=== PATIENT | female | born 1955 | race Caucasian/White ===

== ENCOUNTER 2024-04-29 02:35 | Inpatient (IN) | payer MEDICARE, SELFPAY ==
[2024-04-29] VITALS (21 sets, daily range): BP systolic 110–146; BP diastolic 61–86; PULSE 95–124; RESP 18–28; TEMP 36.4–37.9; O2SAT 91–98; BMI 17.7; BMI 18.3
--- NOTE | 2024-04-29 02:58 | RAD_ITS ---
INDICATION: SOB,BRONCHIECTASIS EXAMINATION/TECHNIQUE: X-RAY - XR Chest 2 Views COMPARISON: None. FINDINGS: LINES/DEVICES: None. LUNGS: Hyperexpanded lungs with coarsened interstitium. Reticular opacification left posterior lower lobe. No florid edema or effusion. No pneumothorax. Right lateral pulmonary suture noted. MEDIASTINUM AND CARDIOVASCULAR STRUCTURES: Cardiac silhouette not enlarged. BONES AND SOFT TISSUES: Unremarkable. RAD/Chest PA and Lateral IMPRESSION: Findings concerning for left lower lobe pneumonia, superimposed on chronic obstructive pulmonary disease. Electronically Signed: Pancho Gonzalez MD at 4:02 EDT ,
--- NOTE | 2024-04-29 02:58 | EKG12_ITS ---
Test Reason : SOB Blood Pressure : / mmHG Vent. Rate : 124 BPM Atrial Rate : 124 BPM P-R Int : 174 ms QRS Dur : 078 ms QT Int : 286 ms P-R-T Axes : 076 075 065 degrees QTc Int : 410 ms Sinus tachycardia Nonspecific ST and T wave abnormality Abnormal ECG Confirmed by ALEKSANDR JONES, JAYME ([id number]), editorial writer ABDIFATAH VALENTIN ([id number]) on 05/02/2024 10:10:19 AM Referred By: Confirmed By:CLAUDINE BRANDON MD
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
[2024-04-29 03:14] LABS: Absolute Lymphocyte Count 0.12 X10^3/uL (0.83-4.51); Absolute Neutrophil Count 19.1 X10^3/uL (2.0-7.7); Basophil# 0.03 X10^3/uL; Basophil% 0.2 % (0-1); Hematocrit 35.3 % (37-47); Hemoglobin 12.2 g/dL (12.0-15.0); Lymphocyte # 0.12 X10^3/ul (0.83-4.51); Lymphocyte % 0.6 % (19-41); Mean Corp Hgb Conc 34.6 g/dL (32-36); Mean Corpuscular Hgb 33.1 pg (27.0-32.0); Mean Corpuscular Volume 95.7 fL (81-99); Mean Platelet Vol. 11.2 fl (6.2-12.0); Monocyte# 0.59 X10^3/uL; NRBC Flagged by Analyzer 0 % (0-5); Neutrophil # 19.08 X10^3/uL (2.7-7.7); Neutrophil % 95.4 % (47-70); POSITIVE DIFFERENTIAL YES; Platelet Count 123 K/mm3 (150-450); RBC Distribution Width CV 13.7 % (11.6-14.6); RBC Distribution Width SD 48.6 fl (35.1-43.9); Red Blood Count 3.69 M/mm3 (4.2-5.4)
[2024-04-29] MEDS: MethylPREDNISolone 125 MG/2 ML Vial IV (03:15)
[2024-04-29] MEDS: Albuterol 2.5 MG/3 ML VIAL.NEB. INHALATION ×2 (03:17)
[2024-04-29] MEDS: 0.9% Normal Saline (1000mL) 1,000 ML 100 ML IV (03:18)
[2024-04-29 03:40] LABS: Anion Gap 6 (5-15); BUN 17 mg/dL (7-18); BUN/Creat Ratio 22.1 RATIO (10-20); Calcium,Total 9.1 mg/dL (8.5-10.1); Chloride 92 mmol/L (98-107); Creatinine, Serum 0.77 mg/dL (0.55-1.02); EST Glomerular Filtration Rate 79 mL/min (>60); Est Glom Filt Rate - Afr Amer 96 mL/min (>60); Estimated Creatinine Clearance 53.75 ml/min; Glucose 121 mg/dL (74-106); Potassium 3.6 mmol/L (3.5-5.1); Sodium Level 128 mmol/L (136-145); Troponin-I HS 13 pg/mL (3.0-54.0)
[2024-04-29 03:51] LABS: BNP,B-Type NATRIURETIC PEPTIDE 60.9 pg/mL (0-100)
[2024-04-29] MEDS: Acetaminophen 500 MG Tablet 1000 MG PO (04:31)
[2024-04-29] MEDS: Piperacil/Tazobactam 4.5 GM in 0.9% Normal Saline (100mL MB+) 100 ML IV (04:43)
--- NOTE | 2024-04-29 05:06 | HP.PCM.HOS_ITS ---
[facility] - General General Date of Admission: 04/29/24 Date of Service: 04/29/24 Chief Complaint: shortness of breath. HPI Narrative ROSALVA WILSON, is a 68 F who presents with shortness of breath. Patient has a history of bronchiectasis and COPD and is on oxygen 3 L/min continuous. Patient is from outside of [place] and came out this area to do some camping. The left on Sunday and patient had been feeling okay but had not been feeling her normal but did become acutely short of breath this morning which led her to come to the hospital. Patient was noted to be tachypneic and tachycardic and had to be on 6 L of oxygen nasal cannula. Patient had a chest x-ray that showed concerns for developing pneumonia in the left lower lobe. Patient received pip- tazo and azithromycin as well as bronchodilators and methylprednisolone. Patient is feeling better at this time. COUNT [facility]CLUDES THE [facility] Medical History (Updated 04/29/24 @ 05:[address] Mikhail Mason, DO) Paroxysmal atrial fibrillation Bronchiectasis Restless legs Hearing loss, right Depression Anxiety Osteopenia Rheumatoid arthritis GERD (gastroesophageal reflux disease) Smoker On home oxygen therapy Asthma Hypertension DVT (deep venous thrombosis) Sjogren's disease Atrial fibrillation Lupus COPD (chronic obstructive pulmonary disease) Home Medications ?Medication ?Instructions ?Recorded ?Last Taken ?Type albuterol sulfate 2.5 mg/3 mL 2.5 mg inhalation Q6H PRN PRN 04/29/24 Unknown History (0.083 %) solution for nebulization wheezing albuterol sulfate 90 mcg/actuation 2 puff inhalation Q6H PRN PRN 04/29/24 Unknown History aerosol inhaler wheezing apixaban 5 mg tablet (Eliquis) 5 mg PO BID blood thiner 04/29/24 Unknown History cholecalciferol (vitamin D3) 25 25 mcg PO DAILY supplement 04/29/24 Unknown History mcg (1,000 unit) capsule (Vitamin D3) cranberry 500 mg capsule 500 mg PO DAILY supplement 04/29/24 Unknown History diltiazem HCl 240 mg capsule,24 240 mg PO DAILY cardiac 04/29/24 Unknown History hr,extended release duloxetine 30 mg capsule,delayed 30 mg PO DAILY depression 04/29/24 Unknown History release duloxetine 60 mg capsule,delayed 60 mg PO QHS depression 04/29/24 Unknown History release famotidine 20 mg tablet 20 mg PO DAILY gi 04/29/24 Unknown History fluticasone fur. 200 mcg-umeclid 1 inh inhalation DAILY lungs 04/29/24 Unknown History 62.5 mcg-vilant 25 mcg inhalat.powder (Trelegy Ellipta) furosemide 40 mg tablet 40 mg PO DAILY water pill 04/29/24 Unknown History hydroxychloroquine 200 mg tablet 200 mg PO DAILY RA 04/29/24 Unknown History ipratropium bromide 21 mcg (0.03 2 spray intranasal Q12.TCU COPD 04/29/24 Unknown History %) nasal spray lactobacillus combination no.9 1 cap PO DAILY supplement 04/29/24 Unknown History magnesium 200 mg tablet 400 mg PO DAILY supplement 04/29/24 Unknown History mecobalamin (vitamin B12) 1 tab PO DAILY supplement 04/29/24 Unknown History montelukast 10 mg tablet 10 mg PO QPM lungs 04/29/24 Unknown History pantoprazole 40 mg tablet,delayed 40 mg PO DAILY gi 04/29/24 Unknown History release pregabalin 75 mg capsule 75 mg PO TID nerve 04/29/24 Unknown History Allergy/AdvReac Type Severity Reaction Status Date / Time No Known Allergies Allergy Verified 04/29/24 02:49 Family History (Updated 04/29/24 @ 05:[address] Mikhail Mason DO) Other Lung disease Surgical History History of cholecystectomy Social History (Updated 04/29/24 @ 05:[address] Mikhail Mason DO) Smoking Status: Light Smoker (<10/day) alcohol intake: current alcohol intake frequency: holidays/special occasions only substance use type: does not use ROS ROS Narrative Chills. Coughing but unproductive at this time. All review of systems were negative except as mentioned above in the history of present illness and the other review of systems. Vital Signs Vital Signs Vital Signs: 04/29/24 02:36 04/29/24 02:36 04/29/24 02:42 Temperature 36.7 C 36.8 C Temperature Source Oral Oral Pulse Rate 124 H 124 H 122 H Respiratory Rate 27 H 28 H 27 H Respiratory Effort Respiratory Depth Respiratory Pattern Blood Pressure 146/71 H 146/71 H Blood Pressure Mean 96 96 Pulse Ox 91 92 92 Oxygen Delivery Method Nasal Cannula Nasal Cannula Nasal Cannula Oxygen Flow Rate (L/min) 6 6 6 04/29/24 02:42 04/29/24 02:58 04/29/24 03:04 Temperature Temperature Source Pulse Rate 122 H Respiratory Rate 24 H Respiratory Effort Short of Breath Respiratory Depth Deep Respiratory Pattern Tachypnea Blood Pressure Blood Pressure Mean Pulse Ox 92 Oxygen Delivery Method Nasal Cannula Nasal Cannula Oxygen Flow Rate (L/min) 6 6 04/29/24 03:36 04/29/24 03:42 04/29/24 04:00 Temperature 37.8 C H 37.8 C H Temperature Source Oral Oral Pulse Rate 121 H 121 H 113 H Respiratory Rate 20 H 20 H 20 H Respiratory Effort Respiratory Depth Respiratory Pattern Blood Pressure 137/70 H 118/61 122/65 H Blood Pressure Mean 92 80 84 Pulse Ox 91 91 92 Oxygen Delivery Method Nasal Cannula Nasal Cannula Nasal Cannula Oxygen Flow Rate (L/min) 5 6 6 04/29/24 04:32 Temperature 37.9 C H Temperature Source Pulse Rate 115 H Respiratory Rate 20 H Respiratory Effort Respiratory Depth Respiratory Pattern Blood Pressure 122/65 H Blood Pressure Mean 84 Pulse Ox 93 Oxygen Delivery Method Oxygen Flow Rate (L/min) Weight Weight: 49.895 kg Body Mass Index (BMI) 17.7 Physical Exam Narrative - Physical Exam General: Alert, Oriented x3, Cooperative. No respiratory distress. No conversational dyspnea. Patient was having several coughing fits during my encounter and her oxygen did not drop below 90s. Cachectic HEENT: Atraumatic, PERRLA, EOMI, Normocephalic Oral: Moist Mucosa, No Gingival or Mucosal Lesions/ Ulcerations Neck: Supple, No JVD, Negative Carotid Bruits Lungs: Diminished bilaterally. Left lower lobe crackles. Cardiovascular: Regular rate, Normal S1, Normal S2, No murmurs Abdomen: Bowel Sounds Present, Soft, Non Tender, Non-Distended, No Hepato- splenomegaly Extremities: No clubbing, No cyanosis, No edema, Capillary Refill Less than 3 Seconds Skin: No rashes, No breakdown Musculoskeletal: No Tenderness to Palpation of Joints or Extremities Neurological: Neuro grossly intact Psych/Mental Status: Normal Affect, Appropriate Results Lab / Micro Data Attestation: I reviewed the patient's lab results. 04/29/24 02:24 04/29/24 02:24 Labs: Laboratory Results - last 24 hr 04/29/24 02:24: WBC 20.0 H, RBC 3.69 L, Hgb 12.2, Hct 35.3 L, MCV 95.7, MCH 33.1 H, MCHC 34.6, RDW Std Deviation 48.6 H, RDW Coeff of Valerie 13.7, Plt Count 123 L, MPV 11.2, Immature Gran % (Auto) 0.800, Neut % (Auto) 95.4 H, Lymph % (Auto) 0.6 L, [place] % (Auto) 3.0, Eos % (Auto) 0.0, Baso % (Auto) 0.2, Absolute Neuts (auto) 19.1 H, Absolute Lymphs (auto) 0.12 L, Nucleated RBC % 0, Sodium 128 L, Potassium 3.6, Chloride 92 L, Carbon Dioxide 30.0, Anion Gap 6, BUN 17, Creatinine 0.77, Estim Creat Clear Calc 53.75, Est GFR (MDRD) Af Amer 96, Est GFR (MDRD) Non-Af 79, BUN/Creatinine Ratio 22.1 H, Glucose 121 H, Calcium 9.1, Troponin I High Sens 13, B-Natriuretic Peptide 60.9 Micro: Microbiology 04/29/24 03:21 Mucosa - Nose SARS-CoV-2, Influenza & RSV (PCR) - Final Rhythm Strip Rhythm Strip: Sinus Tach Rate: 120 Ectopy: None EKG Initial EKG: Attestation: I personally reviewed and interpreted this EKG as follows: EKG Rhythm Intrepretation: Sinus Tachycardia Imaging Radiology Impression Chest X-Ray 04/29/24 02:58 IMPRESSION: Findings concerning for left lower lobe pneumonia, superimposed on chronic obstructive pulmonary disease. Electronically Signed: Pancho Gonzalez MD at 4:02 EDT , Assessment & Plan Assessment/Plan (1) Pneumonia: (2) Acute exacerbation of chronic obstructive pulmonary disease (COPD): PLAN: Plan Pneumonia * Suspect gram-negative given given the patient's underlying chronic bronchiectasis * Plan: Pip-tazo for antibiotics. Check sputum culture, check urinary antigens for strep and Legionella. Pulmonary toilet patient recently treated for pneumonia about 3 weeks ago. Will request records from that hospital ([place], [place]). Acute COPD exacerbation * Bronchodilators and methylprednisolone. Complicated by patient's underlying bronchiectasis Acute exacerbation of bronchiectasis * As above Moderate protein calorie malnutrition * Supplements Chronic condition * Paroxysmal atrial fibrillation: Patient is tachycardic but appears to be sinus tach. Resume medications once the med reconciled. * Sjogren's: Complicates care and recovery * Recent GI bleed. Patient was noted to have heme positive stools and was scheduled to have outpatient EGD in the coming weeks. VTE prophylaxis with SCDs CODE STATUS: Addressed with the patient. Patient wishes to be DNR Comfort Care arrest no intubation. Charges/Coding Visit Charges Inpatient E&M: 11551 Init Hosp L3
[2024-04-29 05:09] LABS: Allen Test Positive; Base Excess 1 mmol/L (-2 to +2); Blood Gas Specimen Type ART; Mode Not entered; O2 Delivery Device Cannula; PO2 61 mmHG (75-100); SITE R Radial; SO2 91 % (95-99); Total Carbon Dioxide 27 mmol/L; pCO2 43.1 mmHg (35-45); pH 7.39 (7.35-7.45)
[2024-04-29] MEDS: Azithromycin 500 MG in Dextrose 5%-Water (250mL Bag) 250 ML 250 MG IV (05:55)
[2024-04-29] MEDS: Ipratropium/Albuterol Sulfate 3 ML AMPUL.NEB INHALATION ×5 (07:31→23:01)
[2024-04-29] MEDS: guaiFENesin 1,200 MG Tablet 1200 MG PO ×2 (08:04→21:08)
--- NOTE | 2024-04-29 08:24 | EX.PCM.CONCC ---
Assessment & Plan Assessment/Plan (1) Acute exacerbation of chronic obstructive pulmonary disease (COPD): (2) Bronchiectasis: PLAN: Plan RECOMMENDATIONS: 1. Supplemental oxygen to maintain saturations at or above 90%. 2. Continue empiric antimicrobials. 3. Continue scheduled bronchodilators and steroids. 4. Encourage bronchopulmonary hygiene with PEP and IS. 5. Mobilize patient as tolerated. IMPRESSIONS: 1. COPD/bronchiectasis exacerbation secondary to left lower lobe pneumonia The patient has a known history of COPD and bronchiectasis and is followed by a lime plant operator in [place]. The patient was vacationing here at a local campground and was exposed recently to campfire smoke. In addition, her chest x-ray demonstrated a left lower lobe infiltrate, concerning for pneumonia. Accordingly, it is reasonable to continue scheduled bronchodilators, steroids and antimicrobials as ordered. The patient has a baseline oxygen requirement of 2 to 3 L/min and continues to smoke cigarettes daily. She appears to be improving clinically from a respiratory perspective. If the patient continues on this trajectory, she will likely be stable for discharge home tomorrow. She will require close outpatient follow-up with her primary lime plant operator in [place] after discharge. 2. Chronic tobacco dependency/protein calorie malnutrition/paroxysmal atrial fibrillation/Sjogren's syndrome Complicates care, management, recovery and prognosis. Continue current supportive care. Tobacco cessation counseling was provided. This note was generated with [employer] dictation software. It may contain incorrect words, spelling, and punctuation that were not noted in checking the note before signing. HPI Consult Data Date of Consult: 04/29/24 HPI Narrative Reason for Consultation: COPD exacerbation HPI Narrative: The patient is a 68-year-old female, with a history as outlined below, who presented to the emergency department on the morning of April 29 with worsening shortness of breath. The patient has a known history of COPD of unclear severity along with bronchiectasis and chronic hypoxemic respiratory failure with a baseline oxygen requirement of 2 to 3 L/min. The patient currently resides in [place] and was here for vacation at a local campground. She has an extensive tobacco abuse history and continues to smoke 0.5 packs of cigarettes per day. She is on a triple therapy inhaler regimen at her baseline, followed by a local lime plant operator in [place]. She stated that she has been admitted to her local hospital in [place] several times over the last multiple months, due to exacerbations. On presentation to the emergency department, the patient was documented to have a low-grade fever and was tachycardic and tachypneic. She was otherwise hemodynamically stable and saturating 91% on 6 L/min via nasal cannula. Laboratory evaluation revealed an elevated white blood cell count to 20,000. Platelet count was low at 123,000. Chemistry profile was notable for a sodium of 128, chloride of 92 and normal creatinine. Troponin and BNP were normal. ABG demonstrated a pH of 7.39 with a pCO2 of 43 and pO2 of 61. Chest x-ray demonstrated a left lower lobe infiltrate. The patient was initiated on scheduled bronchodilators, IV steroids and antimicrobials. She was admitted to the medical surgical floor for further management. At the time of my evaluation of the patient this morning, she noted interval improvement in her overall breathing quality. She is currently saturating in the mid to high 90s on 3 L/min via nasal cannula. She reports compliance with her prescribed inhaler regimen. [facility] Medical History (Updated 04/29/24 @ 05:[address] Mikhail Mason, DO) Paroxysmal atrial fibrillation Bronchiectasis Restless legs Hearing loss, right Depression Anxiety Osteopenia Rheumatoid arthritis GERD (gastroesophageal reflux disease) Smoker On home oxygen therapy Asthma Hypertension DVT (deep venous thrombosis) Sjogren's disease Atrial fibrillation Lupus COPD (chronic obstructive pulmonary disease) Home Medications ?Medication ?Instructions ?Recorded ?Last Taken ?Type albuterol sulfate 2.5 mg/3 mL 2.5 mg inhalation Q6H PRN PRN 04/29/24 Unknown History (0.083 %) solution for nebulization wheezing albuterol sulfate 90 mcg/actuation 2 puff inhalation Q6H PRN PRN 04/29/24 Unknown History aerosol inhaler wheezing apixaban 5 mg tablet (Eliquis) 5 mg PO BID blood thiner 04/29/24 Unknown History cholecalciferol (vitamin D3) 25 25 mcg PO DAILY supplement 04/29/24 Unknown History mcg (1,000 unit) capsule (Vitamin D3) cranberry 500 mg capsule 500 mg PO DAILY supplement 04/29/24 Unknown History diltiazem HCl 240 mg capsule,24 240 mg PO DAILY cardiac 04/29/24 Unknown History hr,extended release duloxetine 30 mg capsule,delayed 30 mg PO DAILY depression 04/29/24 Unknown History release duloxetine 60 mg capsule,delayed 60 mg PO QHS depression 04/29/24 Unknown History release famotidine 20 mg tablet 20 mg PO DAILY gi 04/29/24 Unknown History fluticasone fur. 200 mcg-umeclid 1 inh inhalation DAILY lungs 04/29/24 Unknown History 62.5 mcg-vilant 25 mcg inhalat.powder (Trelegy Ellipta) furosemide 40 mg tablet 40 mg PO DAILY water pill 04/29/24 Unknown History hydroxychloroquine 200 mg tablet 200 mg PO DAILY RA 04/29/24 Unknown History ipratropium bromide 21 mcg (0.03 2 spray intranasal Q12.TCU COPD 04/29/24 Unknown History %) nasal spray lactobacillus combination no.9 1 cap PO DAILY supplement 04/29/24 Unknown History magnesium 200 mg tablet 400 mg PO DAILY supplement 04/29/24 Unknown History mecobalamin (vitamin B12) 1 tab PO DAILY supplement 04/29/24 Unknown History montelukast 10 mg tablet 10 mg PO QPM lungs 04/29/24 Unknown History pantoprazole 40 mg tablet,delayed 40 mg PO DAILY gi 04/29/24 Unknown History release pregabalin 75 mg capsule 75 mg PO TID nerve 04/29/24 Unknown History Allergy/AdvReac Type Severity Reaction Status Date / Time No Known Allergies Allergy Verified 04/29/24 02:49 Family History (Updated 04/29/24 @ 05:[address] Mikhail Mason DO) Other Lung disease Surgical History History of cholecystectomy Social History (Updated 04/29/24 @ 05:[address] Mikhail Mason DO) Smoking Status: Light Smoker (<10/day) alcohol intake: current alcohol intake frequency: holidays/special occasions only substance use type: does not use ROS ROS Narrative 10 systems were reviewed with pertinent positives as noted in the HPI above. Physical Exam Const alert and no apparent distress General Appearance: cooperative HEENT normocephalic and head/scalp atraumatic Eyes PERRL, EOMs intact bilaterally and conjunctivae normal Neck supple General: trachea midline Chest inspection of chest normal Resp normal respiratory effort Auscultation: rales bilateral base and diminished lung sounds Cardio regular rate and regular rhythm GI normal to inspection, nondistended, normoactive bowel sounds Extremity no clubbing, cyanosis or edema Skin no rashes or lesions noted Neuro CN's II-XII intact bilaterally, moves all extremities and no focal motor deficits Psych cooperative and affect normal Lab / Micro Data 04/29/24 02:24 04/29/24 02:24 Labs: Laboratory Results - last 24 hr 04/29/24 02:24: WBC 20.0 H, RBC 3.69 L, Hgb 12.2, Hct 35.3 L, MCV 95.7, MCH 33.1 H, MCHC 34.6, RDW Std Deviation 48.6 H, RDW Coeff of Valerie 13.7, Plt Count 123 L, MPV 11.2, Immature Gran % (Auto) 0.800, Neut % (Auto) 95.4 H, Lymph % (Auto) 0.6 L, [place] % (Auto) 3.0, Eos % (Auto) 0.0, Baso % (Auto) 0.2, Absolute Neuts (auto) 19.1 H, Absolute Lymphs (auto) 0.12 L, Nucleated RBC % 0, Sodium 128 L, Potassium 3.6, Chloride 92 L, Carbon Dioxide 30.0, Anion Gap 6, BUN 17, Creatinine 0.77, Estim Creat Clear Calc 53.75, Est GFR (MDRD) Af Amer 96, Est GFR (MDRD) Non-Af 79, BUN/Creatinine Ratio 22.1 H, Glucose 121 H, Calcium 9.1, Troponin I High Sens 13, B-Natriuretic Peptide 60.9 Micro: Microbiology 04/29/24 03:21 Mucosa - Nose SARS-CoV-2, Influenza & RSV (PCR) - Final ABG Data ABG results: ABG 04/29/24 05:05 Specimen Type ART Sample Site R Radial pH 7.39 Bicarbonate Actual 26.0 Total CO2 27 Base Excess 1 O2 Saturation 91 L O2 % 6.0 ABG pCO2 43.1 ABG pO2 61 L Gui Test Positive O2 Delivery Device Cannula Vent Mode Not entered Rhythm Strip Rhythm Strip: Sinus Tach Rate: 120 Ectopy: None Imaging Radiology Impression Chest X-Ray 04/29/24 02:58 IMPRESSION: Findings concerning for left lower lobe pneumonia, superimposed on chronic obstructive pulmonary disease. Electronically Signed: Pancho Gonzalez MD at 4:02 EDT , Charges/Coding Visit Charges Inpatient E&M: 39041 Init Hosp L3
--- NOTE | 2024-04-29 11:15 | CASEMGMT ---
ANDI WESTFALL Assessment Face to Face with patient for initial transition planning/care coordination assessment. ANDI WESTFALL introduced self and role at [facility], pt voices understanding. Pt is A&Ox4 and is resting comfortably in bed and is calm. Care providers, pharmacy, and demographics verified. Admitting dx: Pneumonia PCP: Pancho Cardozo Specialists: Pulmonary in [place] Preferred Pharmacy: [facility] during this stay Insurance: [facility] (MCR ADV) Prescription Benefit: Yes LNOK: Devendra Almonte (H) Living Arrangements: Pt is visiting from [place] for some camping. Pt normally lives with her in a two story home with 2 steps to enter ADLs/IADLs: States normally ind and that her is able to provide support as needed . Transportation: Pt . pt denies concerns DME: Pt states that she wears 3L continuous via [place] through [employer]. TC to [employer] and [employer] states that the pt current order states 3L cont. Pt states that she has a portable oxygen concentrator, stationary concentrator, and a pulse ox. Pt states that her will bring in her portable 02 at time of DC. Pt also alvarez s a FWW. HHC/SNF: Denies history or needs Plan: Per the MD, the plan is to DC the pt tomorrow as long as she continues to trend in the right direction. 6-Click is 20. Pt states that she does not need or want HHC, OP Tx, or SNF. Pt states that she plans to return to the campground that she is visiting tomorrow after DC. Pt denies further concerns. CM to follow for updated O2 requirements. Laury Peng RN, CM
--- NOTE | 2024-04-29 13:29 | PCM.HOSP.N ---
Hospitalist Note Patient was seen and examined today, she was admitted early this morning with left lower lobe pneumonia, she was seen by pulmonary medicine today who recommended continuing present antibiotics and discharging the patient when medically stable on Levaquin. Patient is currently on 3 L/min via nasal cannula which is her usual setting. Patient will be reevaluated tomorrow, continue present treatment.
[2024-04-29] MEDS: Piperacil/Tazobactam 3.375 GM in 0.9% Normal Saline (50mL MB+) 50 ML IV ×2 (13:45→21:08)
[2024-04-29] MEDS: 0.9% Saline Lock 10 ML Syringe IV (13:45)
[2024-04-30] VITALS (8 sets, daily range): BP systolic 131–159; BP diastolic 64–78; PULSE 105–118; RESP 18–22; TEMP 36.6–37.2; O2SAT 95–98
[2024-04-30] MEDS: Ipratropium/Albuterol Sulfate 3 ML AMPUL.NEB INHALATION ×2 (02:28→06:46)
[2024-04-30] MEDS: Piperacil/Tazobactam 3.375 GM in 0.9% Normal Saline (50mL MB+) 50 ML IV (05:06)
[2024-04-30 06:53] LABS: Absolute Lymphocyte Count 0.73 X10^3/uL (0.83-4.51); Basophil# 0.01 X10^3/uL; Basophil% 0.1 % (0-1); Eosinophil# 0.03 X10^3/uL; Eosinophils% 0.2 % (0-5); Hematocrit 33.1 % (37-47); Hemoglobin 11.4 g/dL (12.0-15.0); Lymphocyte # 0.73 X10^3/ul (0.83-4.51); Lymphocyte % 5.2 % (19-41); Mean Corp Hgb Conc 34.4 g/dL (32-36); Mean Corpuscular Hgb 32.9 pg (27.0-32.0); Mean Corpuscular Volume 95.7 fL (81-99); Mean Platelet Vol. 10.9 fl (6.2-12.0); Monocyte# 0.32 X10^3/uL; Monocyte% 2.3 % (0-10); NRBC Flagged by Analyzer 0 % (0-5); Neutrophil # 12.97 X10^3/uL (2.7-7.7); Neutrophil % 91.6 % (47-70); Platelet Count 129 K/mm3 (150-450); RBC Distribution Width CV 13.9 % (11.6-14.6); RBC Distribution Width SD 48.8 fl (35.1-43.9); Red Blood Count 3.46 M/mm3 (4.2-5.4); White Blood Count 14.1 K/mm3 (4.4-11.0)
[2024-04-30 07:16] LABS: Anion Gap 5 (5-15); BUN 13 mg/dL (7-18); BUN/Creat Ratio 19.1 RATIO (10-20); Chloride 99 mmol/L (98-107); Creatinine, Serum 0.68 mg/dL (0.55-1.02); EST Glomerular Filtration Rate 91 mL/min (>60); Est Glom Filt Rate - Afr Amer 111 mL/min (>60); Estimated Creatinine Clearance 55.48 ml/min; Glucose 156 mg/dL (74-106); Potassium 3.9 mmol/L (3.5-5.1); Sodium Level 134 mmol/L (136-145)
--- NOTE | 2024-04-30 08:43 | PCM.DC ---
Discharge Instructions Diet Discharge Diet: No restrictions Activity Discharge Activity: Return to Normal Activity Weight Bearing Status: Full weight bearing Follow Up Care Test Results: Test results from this visit will be discussed in further detail at your follow-up appointment, if applicable. Discharge Plan Admission Admit Date/Time: 04/29/24 04:56 Primary Reason for Your Visit: pneumonia Attending Provider: Jaime Pryor Primary Care Provider: ANSHU LANDRY Consulting Providers: Mikhail Mason; Josiah Hope; Manjinder Nicholson; Al Lacey; Franklyn Garrett; Allen Matthews; Hyun Mast; Silvio Gates; Vincent Sanchez; Salena Lizarraga; Guru Aguilar; Nick Scott; Elder Ratliff; Adeel Sanchez; Aaron Jean-Baptiste; Tyrone Martinez; Ernesto Arenas; Yanci Buenrostro [employer] PRESIDENT Instructions Additional Instructions / Restrictions: Follow-up with your primary care doctor in 1 to 2 weeks Discharge Orders/Prescriptions Prescriptions: New amoxicillin-pot clavulanate 875-125 mg tablet 1 tab PO BID Qty: 20 0RF Rx Instructions: start this evening-take with food prednisone 20 mg tablet 40 mg PO DAILY Qty: 10 0RF Rx Instructions: start today Continued albuterol sulfate 2.5 mg /3 mL (0.083 %) solution for nebulization 2.5 mg inhalation Q6H PRN PRN (Reason: wheezing) diltiazem HCl 240 mg capsule,extended release 24 hr 240 mg PO DAILY duloxetine 30 mg capsule,delayed release(DR/EC) 30 mg PO DAILY duloxetine 60 mg capsule,delayed release(DR/EC) 60 mg PO QHS famotidine 20 mg tablet 20 mg PO DAILY furosemide 40 mg tablet 40 mg PO DAILY hydroxychloroquine 200 mg tablet 200 mg PO DAILY ipratropium bromide 21 mcg (0.03 %) spray,non-aerosol 2 spray INTRANASAL Q12.TCU montelukast 10 mg tablet 10 mg PO QPM pregabalin 75 mg capsule 75 mg PO TID pantoprazole 40 mg tablet,delayed release (DR/EC) 40 mg PO DAILY albuterol sulfate 90 mcg/actuation HFA aerosol inhaler 2 puff INHALATION Q6H PRN PRN (Reason: wheezing) Trelegy Ellipta 200-62.5-25 mcg blister with device 1 inh inhalation DAILY mecobalamin (vitamin B12) 1 tab PO DAILY Patient Comments: 100 mg cranberry 500 mg capsule 500 mg PO DAILY Rx Instructions: administer with a meal Eliquis 5 mg tablet 5 mg PO BID cholecalciferol (vitamin D3) [Vitamin D3] 25 mcg (1,000 unit) capsule 25 mcg PO DAILY lactobacillus combination no.9 [Adult 50 Plus Probiotic] 1 cap PO DAILY Patient Comments: 40 million magnesium 200 mg tablet 400 mg PO DAILY Referrals / Follow Up: ANSHU LANDRY [[facility]] [facility] Doctor,Out of [Non-Staff] - Disposition Disposition (needs filled in before D/C Order can be placed): Home, Self Care
[2024-04-30] MEDS: guaiFENesin 1,200 MG Tablet 1200 MG PO (08:45)
--- NOTE | 2024-04-30 08:54 | PCM.DC.SUM ---
Providers Date of Admission: 04/29/24 Date of Discharge: 04/30/24 Primary Care Physician: ANSHU LANDRY Consultations 04/29/24 05:28 Consult: Adjunct Faculty For Medical Terminology / Pulmonary Medicine Routine Consulting Provider: Pulmonary Medicine [facility] [place] Reason for Consult: pneumonia. bronchiectasis EMERGENT Consult: No MD Notified: Yes Date Notified: 04/29/24 Time Notified: 07:42 Method of Notification: Text Reason For Visit: PNEUMONIA ACUTE CHRONIC RESPIRATORY FAILURE Diagnosis Discharge Diagnosis (1) Acute exacerbation of chronic obstructive pulmonary disease (COPD): Status: Chronic Code(s): J44.1 - Chronic obstructive pulmonary disease with (acute) exacerbation (2) Bronchiectasis: Status: Acute Code(s): J47.9 - Bronchiectasis, uncomplicated Plan 1. Community-acquired pneumonia left lower lobe #2 exacerbation of bronchiectasis secondary to left lower lobe pneumonia #3 chronic obstructive pulmonary disease #4 hyponatremia-not felt to be medically significant #5 paroxysmal atrial fibrillation #6 chronic hypoxic respiratory failure No evidence for malnutrition exists, malnutrition was ruled out Medications at Discharge Home Medications albuterol sulfate 2.5 mg/3 mL (0.083 %) solution for nebulization 2.5 mg inhalation Q6H PRN PRN wheezing 04/29/24 albuterol sulfate 90 mcg/actuation aerosol inhaler 2 puff inhalation Q6H PRN PRN wheezing 04/29/24 apixaban 5 mg tablet (Eliquis) 5 mg PO BID blood thiner 04/29/24 cholecalciferol (vitamin D3) 25 mcg (1,000 unit) capsule (Vitamin D3) 25 mcg PO DAILY supplement 04/29/24 cranberry 500 mg capsule 500 mg PO DAILY supplement 04/29/24 diltiazem HCl 240 mg capsule,24 hr,extended release 240 mg PO DAILY cardiac 04/29/24 duloxetine 30 mg capsule,delayed release 30 mg PO DAILY depression 04/29/24 duloxetine 60 mg capsule,delayed release 60 mg PO QHS depression 04/29/24 famotidine 20 mg tablet 20 mg PO DAILY gi 04/29/24 fluticasone fur. 200 mcg-umeclid 62.5 mcg-vilant 25 mcg inhalat.powder (Trelegy Ellipta) 1 inh inhalation DAILY lungs 04/29/24 furosemide 40 mg tablet 40 mg PO DAILY water pill 04/29/24 hydroxychloroquine 200 mg tablet 200 mg PO DAILY RA 04/29/24 ipratropium bromide 21 mcg (0.03 %) nasal spray 2 spray intranasal Q12.TCU COPD 04/29/24 lactobacillus combination no.9 1 cap PO DAILY supplement 04/29/24 magnesium 200 mg tablet 400 mg PO DAILY supplement 04/29/24 mecobalamin (vitamin B12) 1 tab PO DAILY supplement 04/29/24 montelukast 10 mg tablet 10 mg PO QPM lungs 04/29/24 pantoprazole 40 mg tablet,delayed release 40 mg PO DAILY gi 04/29/24 pregabalin 75 mg capsule 75 mg PO TID nerve 04/29/24 amoxicillin 875 mg-potassium clavulanate 125 mg tablet 1 tab PO BID #20 tabs 04/30/24 prednisone 20 mg tablet 40 mg (2 x 20 mg) PO DAILY #10 tabs 04/30/24 Hospital Course Operations None Procedures None Summary of Care Provided Minutes Spent on Discharge: 31 Hospital Course: This 68-year-old white female was seen in the emergency room at [facility] with complaints of shortness of breath, she had been visiting from out of state and camping with her , she related to a period of 5 to 6 hours of worsening breathing with coughing and production chronically of green and yellow sputum. Patient had a history of bronchiectasis and COPD and uses 3 L of oxygen at all times. Lab obtained in the emergency room showed an elevated white blood cell count at 20,000, sodium was 128, beta natruretic peptide was normal. Chest x-ray showed findings concerning for left lower lobe pneumonia superimposed on chronic obstructive pulmonary disease. Patient was admitted to [place] [address], she was placed on IV antibiotics and aerosol treatments as well as corticosteroids. She was seen in consultation by pulmonary medicine, oxygen requirements improved. On 04/30/2024, patient was seen and examined: On examination she appeared in good health and spirits, she does not appear to be in any distress. Vital signs as documented. Skin warm and dry and without overt rashes. Neck without JVD, thyroid appears normal, trachea is midline, neck is supple. Lungs clear, normal air movement was noted. Heart exam notable for regular rhythm, normal sounds and absence of murmurs, rubs or gallops. Abdomen unremarkable and without evidence of organomegaly, masses, or abdominal aortic enlargement, bowel sounds are present in all 4 quadrants, no abdominal tenderness was noted. Extremities nonedematous, no cyanosis was noted, no clubbing was noted. Neuro: Cranial nerves II through XII are grossly intact, no focal motor deficits were noted, sensation to light touch and pinprick is intact, motor exam 5/5 throughout. Psych: Patient is alert and oriented x3, she does not appear anxious or depressed, she does not appear agitated. Patient appears stable for discharge on 04/30/2024. Weight / BMI Weight Weight: 51.5 kg Body Mass Index (BMI) 18.3 ABG / Lab / Microbiology Data 04/30/24 06:04 04/30/24 06:04 Laboratory: Laboratory Results - last 24 hr 04/30/24 06:04: WBC 14.1 H, RBC 3.46 L, Hgb 11.4 L, Hct 33.1 L, MCV 95.7, MCH 32.9 H, MCHC 34.4, RDW Std Deviation 48.8 H, RDW Coeff of Valerie 13.9, Plt Count 129 L, MPV 10.9, Immature Gran % (Auto) 0.600, Neut % (Auto) 91.6 H, Lymph % (Auto) 5.2 L, [place] % (Auto) 2.3, Eos % (Auto) 0.2, Baso % (Auto) 0.1, Absolute Neuts (auto) 13.0 H, Absolute Lymphs (auto) 0.73 L, Nucleated RBC % 0, Sodium 134 L, Potassium 3.9, Chloride 99, Carbon Dioxide 30.0, Anion Gap 5, BUN 13, Creatinine 0.68, Estim Creat Clear Calc 55.48, Est GFR (MDRD) Af Amer 111, Est GFR (MDRD) Non-Af 91, BUN/Creatinine Ratio 19.1, Glucose 156 H, Calcium 9.0 Microbiology: Microbiology 04/29/24 21:15 Urine, Random Legionella Antigen - Final 04/29/24 21:15 Urine, Random Streptococcus pneumoniae Antigen (M - Final 04/29/24 07:45 Sputum, Expectorated/Coughed Gram Stain - Final 04/29/24 03:21 Mucosa - Nose SARS-CoV-2, Influenza & RSV (PCR) - Final Radiography Diagnostic Testing: Radiology Impression Chest X-Ray 04/29/24 02:58 IMPRESSION: Findings concerning for left lower lobe pneumonia, superimposed on chronic obstructive pulmonary disease. Electronically Signed: Anshu Gonzalez MD at 4:02 EDT , D/C Instructions Discharge Diet: No restrictions Weight Bearing Status: Full weight bearing Meaningful Use Info Meaningful Use Meaningful Use Diagnoses (Choose all that apply): None applicable Ischemic Stroke Statin Dosing Therapy Reference: STATIN DOSE THERAPY REFERENCE: * Patients > 75 years receive moderate or high dose statin therapy. * Patients 75 years or YOUNGER should receive HIGH intensity statin dose unless contraindicated. You will be required to document reason for non-treatment if statin daily dose does not meet guidelines. HIGH DOSE STATIN THERAPY DAILY Atorvastatin > than or = to 40 mg Rosuvastatin > than or = to 20 mg Amlodipine + Atorvastatin > than or = to 2.5/40 mg Ezetimibe + Simvastatin 10/80 mg Simvastatin 80mg Discharge Plan Admission Admit Date/Time: 04/29/24 04:56 Primary Reason for Your Visit: pneumonia Attending Provider: Jaime Pryor Primary Care Provider: ANSHU LANDRY Consulting Providers: Mikhail Mason Instructions Additional Instructions / Restrictions: Follow-up with your primary care doctor in 1 to 2 weeks Discharge Orders/Prescriptions Prescriptions: New amoxicillin-pot clavulanate 875-125 mg tablet 1 tab PO BID Qty: 20 0RF Rx Instructions: start this evening-take with food prednisone 20 mg tablet 40 mg PO DAILY Qty: 10 0RF Rx Instructions: start today Continued albuterol sulfate 2.5 mg /3 mL (0.083 %) solution for nebulization 2.5 mg inhalation Q6H PRN PRN (Reason: wheezing) diltiazem HCl 240 mg capsule,extended release 24 hr 240 mg PO DAILY duloxetine 30 mg capsule,delayed release(DR/EC) 30 mg PO DAILY duloxetine 60 mg capsule,delayed release(DR/EC) 60 mg PO QHS famotidine 20 mg tablet 20 mg PO DAILY furosemide 40 mg tablet 40 mg PO DAILY hydroxychloroquine 200 mg tablet 200 mg PO DAILY ipratropium bromide 21 mcg (0.03 %) spray,non-aerosol 2 spray INTRANASAL Q12.TCU montelukast 10 mg tablet 10 mg PO QPM pregabalin 75 mg capsule 75 mg PO TID pantoprazole 40 mg tablet,delayed release (DR/EC) 40 mg PO DAILY albuterol sulfate 90 mcg/actuation HFA aerosol inhaler 2 puff INHALATION Q6H PRN PRN (Reason: wheezing) Trelegy Ellipta 200-62.5-25 mcg blister with device 1 inh inhalation DAILY mecobalamin (vitamin B12) 1 tab PO DAILY Patient Comments: 100 mg cranberry 500 mg capsule 500 mg PO DAILY Rx Instructions: administer with a meal Eliquis 5 mg tablet 5 mg PO BID cholecalciferol (vitamin D3) [Vitamin D3] 25 mcg (1,000 unit) capsule 25 mcg PO DAILY lactobacillus combination no.9 [Adult 50 Plus Probiotic] 1 cap PO DAILY Patient Comments: 40 million magnesium 200 mg tablet 400 mg PO DAILY Referrals / Follow Up: ANSHU LANDRY [[facility]] [facility] Doctor,Out of [Non-Staff] - Disposition Disposition (needs filled in before D/C Order can be placed): Home, Self Care Charges/Coding Visit Charges Inpatient E&M: 55878 Disch Hosp >30min
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
--- NOTE | 2024-04-30 10:19 | CASEMGMT ---
Addendum entered by Jae Bundy 04/30/24 11:29: Home O2 testing completed. Pt does not qualify for any increase in O2. Original Note: ANDI WESTFALL NOTE: Discharge order is in. ANDI WESTFALL to room. Introduced self and role. Her is on his way in to take her home and will bring in her portable O2 tank for her to use @ dc. They are planning on returning to the [facility]. She verifies she has a pulse ox @ the [facility] and also a nebulizer. Pt aware there are 2 Rx's @ [facility] retail pharmacy and she states they will picker at the drive-thru. Per Jessica in the pharmacy, cost is $2.12. Pt made aware. Home O2 ambulatory testing to be completed on pt's baseline O2 of 3 L/M. Corinne ESCAMILLA, aware. Pt denies having any further discharge needs/concerns. Javed AUGUSTE RN, CM
--- NOTE | 2024-04-30 10:55 | PHA.DC.MC.R ---
Pharmacy [facility] has performed discharge medication reconciliation and counseling for this patient. 1. AUGMENTIN 875/125MG PO BID X 7 DAYS 2. PREDNISONE 40MG PO DAILY X 5 DAYS The patient's discharge medication list was reviewed for discrepancies and discrepancies were resolved. The patient was counseled on the following discharge medications and changes in medications for homegoing were reviewed. The Reason for Use, instructions for use, and potential side effects were reviewed for all new medications. The patient's questions regarding all of their medications were answered. The patient was able to verbally demonstrate an understanding of their discharge medications. Patient counseled by pharmacy associate Medications at Discharge Home Medications albuterol sulfate 2.5 mg/3 mL (0.083 %) solution for nebulization 2.5 mg inhalation Q6H PRN PRN wheezing 04/29/24 albuterol sulfate 90 mcg/actuation aerosol inhaler 2 puff inhalation Q6H PRN PRN wheezing 04/29/24 apixaban 5 mg tablet (Eliquis) 5 mg PO BID blood thiner 04/29/24 cholecalciferol (vitamin D3) 25 mcg (1,000 unit) capsule (Vitamin D3) 25 mcg PO DAILY supplement 04/29/24 cranberry 500 mg capsule 500 mg PO DAILY supplement 04/29/24 diltiazem HCl 240 mg capsule,24 hr,extended release 240 mg PO DAILY cardiac 04/29/24 duloxetine 30 mg capsule,delayed release 30 mg PO DAILY depression 04/29/24 duloxetine 60 mg capsule,delayed release 60 mg PO QHS depression 04/29/24 famotidine 20 mg tablet 20 mg PO DAILY gi 04/29/24 fluticasone fur. 200 mcg-umeclid 62.5 mcg-vilant 25 mcg inhalat.powder (Trelegy Ellipta) 1 inh inhalation DAILY lungs 04/29/24 furosemide 40 mg tablet 40 mg PO DAILY water pill 04/29/24 hydroxychloroquine 200 mg tablet 200 mg PO DAILY RA 04/29/24 ipratropium bromide 21 mcg (0.03 %) nasal spray 2 spray intranasal Q12.TCU COPD 04/29/24 lactobacillus combination no.9 1 cap PO DAILY supplement 04/29/24 magnesium 200 mg tablet 400 mg PO DAILY supplement 04/29/24 mecobalamin (vitamin B12) 1 tab PO DAILY supplement 04/29/24 montelukast 10 mg tablet 10 mg PO QPM lungs 04/29/24 pantoprazole 40 mg tablet,delayed release 40 mg PO DAILY gi 04/29/24 pregabalin 75 mg capsule 75 mg PO TID nerve 04/29/24 amoxicillin 875 mg-potassium clavulanate 125 mg tablet 1 tab PO BID #20 tabs 04/30/24 prednisone 20 mg tablet 40 mg (2 x 20 mg) PO DAILY #10 tabs 04/30/24
== END 2024-04-30 11:48 | disposition home or self-care (01) | DRG 190 ==
LOC: ED 04:30 → MS3 06:57
PROVIDERS: Emergency Provider Emergency Medicine; Visit Provider Internal Medicine
DX: J44.1 Chronic obstructive pulmonary disease with (acute) exacerbation (principal); J15.69 Pneumonia due to other Gram-negative bacteria; J47.0 Bronchiectasis with acute lower respiratory infection; J47.1 Bronchiectasis with (acute) exacerbation; J96.11 Chronic respiratory failure with hypoxia; I10 Essential (primary) hypertension; M35.00 Sjogren syndrome, unspecified; I48.0 Paroxysmal atrial fibrillation; J44.0 Chronic obstructive pulmonary disease with (acute) lower respiratory infection; F17.210 Nicotine dependence, cigarettes, uncomplicated; R19.5 Other fecal abnormalities; Z66 Do not resuscitate; Z99.81 Dependence on supplemental oxygen; Z79.01 Long term (current) use of anticoagulants; Z79.51 Long term (current) use of inhaled steroids; Z79.899 Other long term (current) drug therapy
CPT/HCPCS: 36415; 36600; 71046; 80048; 82803; 83880; 84484; 85025; 87070; 87205; 87449; 87631; 93005; 94640; 94668; 99252; 99285; 99406; J7030; A4216; G0463